=== PATIENT | female | born 1990 | race African-American/Black ===

== ENCOUNTER 2017-06-03 11:24 | Emergency (ER) | payer OTHER ==
[~2017-06-03] VITALS: Ht 167.6 cm; Wt 68.0 kg
[~2017-06-03 11:24] MED LIST: CIPROFLOXACIN500 M1 PO; IBUPROFEN 600600 M1 PO; IBUPROFEN 800800 M1 PO; KEFLEX500 MG PO; NAPROSYN500 MG PO; NO HOME MEDS; NORCO 5-325 TA1 EACH PO; PRENATAL PO; TRAMADOL 50 MG50 MG PO
[2017-06-03] MEDS ORDERED: PROMETHAZINE/C118 ML PO (12:26)
[2017-06-03] MEDS ORDERED: OSELB75 PO (12:26)
== END 2017-06-03 12:34 | disposition home or self-care (01) ==
LOC: ER 11:24
DX: J11.1 Influenza due to unidentified influenza virus with other respiratory manifestations (principal); R50.9 Fever, unspecified

== ENCOUNTER 2020-12-12 18:14 | Emergency (ER) | payer OTHER ==
[~2020-12-12] VITALS: Ht 167.6 cm; Wt 68.0 kg
[~2020-12-12 18:14] MED LIST changes: +OSELB75 PO; +PROMETHAZINE/C118 ML PO
[2020-12-12 20:59] LABS: URINE BILIRUBIN NEGATIVE (Negative); URINE BLOOD NEGATIVE (Negative); URINE CLARITY CLEAR; URINE COLOR YELLOW; URINE GLUCOSE-RANDOM* NEGATIVE (Negative); URINE KETONES NEGATIVE (Negative); URINE LEUKOCYTES-REFLEX TRACE (Negative); URINE NITRITE-REFLEX NEGATIVE (Negative); URINE PROTEIN (DIPSTICK) NEGATIVE (Negative); URINE SPECIFIC GRAVITY 1.025 (1.005-1.035)
[2020-12-12 21:43] VITALS: BP 127/80
== END 2020-12-12 21:44 | disposition home or self-care (01) ==
LOC: ER 18:14
PROVIDERS: Student in an Organized Health Care Education/Training Program
DX: N89.8 Other specified noninflammatory disorders of vagina (principal)